=== PATIENT | male | born 1995 | race Caucasian/White ===

== ENCOUNTER 2021-04-10 11:34 | Emergency (ER) | payer BC ==
[2021-04-10 12:26] LABS: HEMOGLOBIN 16.4 gm/dl (14.0-17.5); RED BLOOD COUNT 5.61 M/UL (4.20-5.50); WHITE BLOOD COUNT 8.1 K/UL (4.5-11.0)
[2021-04-10 13:15] LABS: BUN/CREATININE RATIO 16 (0-10)
[2021-04-10] MEDS ORDERED: KEPPRA500 MG PO (14:49)
== END 2021-04-10 15:03 | disposition home or self-care (01) ==
LOC: ER1 11:34
PROVIDERS: Student in an Organized Health Care Education/Training Program
DX: R56.9 Unspecified convulsions (principal); S00.512A Abrasion of oral cavity, initial encounter; X58.XXXA Exposure to other specified factors, initial encounter
CPT/HCPCS: 70450; 80053; 80307; 81001; 83605; 85025; 96374; 96376; 99285; J1953

== ENCOUNTER 2021-04-24 23:52 | Emergency (ER) | payer BC ==
[~2021-04-24 23:52] MED LIST: KEPPRA500 MG PO
[2021-04-25 01:11] LABS: RED BLOOD COUNT 5.74 M/UL (4.20-5.50); WHITE BLOOD COUNT 12.8 K/UL (4.5-11.0)
[2021-04-25 01:18] LABS: BUN/CREATININE RATIO 18 (0-10)
[2021-04-25] MEDS ORDERED: LAMICTAL100 MG PO (02:59)
== END 2021-04-25 03:20 | disposition home or self-care (01) ==
LOC: ER1 23:52
PROVIDERS: Family Medicine
DX: R56.9 Unspecified convulsions (principal)
CPT/HCPCS: 80053; 80307; 81001; 82550; 82553; 83874; 84484; 85025; 93005; 99285